=== PATIENT | male | born 1975 | race American Indian/Alaskan Native ===

== ENCOUNTER 2018-09-01 13:37 | Inpatient (IN) | payer MEDICAID ==
[2018-09-08] MEDS ORDERED: ZOFRAN ODT PO PRN (13:03)
[2018-09-08] MEDS ORDERED: REQUIP PO PRN (13:03)
[2018-09-08] MEDS ORDERED: ATIVAN IV PRN (13:03)
[2018-09-08] MEDS ORDERED: ZOFRAN IV PRN (13:03)
[2018-09-08] MEDS ORDERED: SENOKOT PO PRN (13:03)
[2018-09-08] MEDS ORDERED: IMODIUM PO PRN (13:03)
[2018-09-08] MEDS ORDERED: TYLENOL PO PRN (13:03)
[2018-09-08] MEDS ORDERED: ROBAXIN PO PRN (13:03)
[2018-09-08] MEDS ORDERED: DULCOLAX PR PRN (13:03)
[2018-09-08] MEDS ORDERED: IBUPROFEN PO PRN (13:03)
[2018-09-08] MEDS ORDERED: VISTARIL PO PRN (13:03)
[2018-09-08] MEDS ORDERED: ALUM-MAG HYDROX-SIMETH 200-200-20MG/5ML PO PRN (13:03)
[2018-09-08] MEDS ORDERED: VISTARIL IM PRN (13:03)
[2018-09-08] MEDS ORDERED: NACL 0.9% 1000 ML 1,000 ML IV SCH (14:00)
[2018-09-08] MEDS ORDERED: HABITROL TD PRN (15:00)
[2018-09-08] MEDS: CATAPRES PO SCH ×3 (15:00→22:35)
[2018-09-08 15:34] LABS: Hematocrit 46.9 % (35.5-45.6); Hemoglobin 15.1 gm/dl (11.8-15.2); Mean Corpuscular HGB Conc 32 % (32-34); Mean Corpuscular Volume 85 fl (84-94); Red Blood Count 5.51 M/mm3 (3.65-5.03); Red Cell Distribution Width 15.8 % (13.2-15.2)
[2018-09-08 15:38] LABS: Alanine Aminotransferase 13 units/L (7-56); Albumin 4.2 g/dL (3.9-5); BUN/Creatinine Ratio 8; Blood Urea Nitrogen 7 mg/dL (9-20); Calcium 9.3 mg/dL (8.4-10.2); Hemolysis Index 25
[2018-09-08 15:40] LABS: Platelet Count 197 K/mm3 (140-440)
[2018-09-08 15:45] LABS: INR 0.89 (0.87-1.13)
[2018-09-08] MEDS: ATIVAN PO SCH ×2 (16:04→20:26)
--- NOTE | 2018-09-08 17:38 | History and Physical Report ---
History of Present Illness Date of examination: 09/08/18 Date of admission: 09/08/18 13:41 Chief complaint: Cocaine dependence and wants help to deal with it. History of present illness: 42-year-old -[place] male with no significant past medical history excep t for cocaine abuse for the last 4 years comes in for help for cocaine dependence. Patient wants to get off cocaine use and dependence. Patient uses about half a gram of cocaine every day worth of $20. Patient does not have any chest pain. No seizures. Patient is slightly nervous and tremulous. Patient does not want to use any more cocaine and wants help or appropriate transfer. No fever or chills, no shortness of breath. No chest pain.. Past History Past Medical History: No medical history Past Surgical History: No surgical history Social history: single, lives with family, smoking, prescription drug abuse Family history: hypertension Medications and Allergies Allergies Allergy/AdvReac Type Severity Reaction Status Date / Time No Known Allergies Allergy Unverified 09/01/18 14:09 Active Meds: Active Medications Acetaminophen (Tylenol) 500 mg PO Q4H PRN PRN Reason: Temp > 100.4 Al Hydrox/Mg Hydrox/Simethicone (Alum-Mag Hydrox-Simeth [id number]/5ml) 30 ml PO Q6H PRN PRN Reason: Dyspepsia Bisacodyl (Dulcolax) 10 mg [place] QDAY PRN PRN Reason: Bowel Movement Clonidine HCl (Catapres) 0.1 mg PO Q4H COUNT INCLUDES THE [facility] Last Admin: 09/08/18 15:00 Dose: 0.1 mg Documented by: Folic Acid (Folvite) 1 mg PO QDAY COUNT INCLUDES THE [facility] Hydroxyzine HCl (Vistaril) 50 mg IM Q6H PRN PRN Reason: Breakthrough Anxiety Hydroxyzine Pamoate (Vistaril) 50 mg PO Q6H PRN PRN Reason: Anxiety Mild Sodium Chloride (Nacl 0.9% 1000 Ml) 1,000 mls @ 75 mls/hr IV DIRECT COUNT INCLUDES THE [facility] Ibuprofen (Motrin) 600 mg PO Q8H PRN PRN Reason: Pain, Mild (1-3) Loperamide HCl (Imodium) 2 mg PO Q8H PRN PRN Reason: Diarrhea Lorazepam (Ativan) 1 mg PO Q4H COUNT INCLUDES THE [facility] Stop: 09/09/18 12:01 Last Admin: 09/08/18 16:04 Dose: 1 mg Documented by: Lorazepam (Ativan) 2 mg IV PRN PRN PRN Reason: Seizures Lorazepam (Ativan) 1 mg PO Q6HR COUNT INCLUDES THE [facility] Stop: 09/10/18 12:01 Lorazepam (Ativan) 1 mg PO Q8H COUNT INCLUDES THE [facility] Stop: 09/11/18 12:01 Methocarbamol (Robaxin) 750 mg PO Q6H PRN PRN Reason: Muscle Ache Multivitamins (Theragran Tab) 1 each PO QDAY COUNT INCLUDES THE [facility] Nicotine (Habitrol) 21 mg TD QDAY PRN PRN Reason: Smoking Cessation Ondansetron HCl (Zofran) 4 mg IV Q6H PRN PRN Reason: Moderat/Severe Nausea/Vomiting Ondansetron HCl (Zofran Odt) 4 mg PO Q6H PRN PRN Reason: Mild / Nausea And Vomiting Ropinirole HCl (Requip) 0.5 mg PO Q12H PRN PRN Reason: Restless Legs Senna (Senokot) 17.2 mg PO QHS PRN PRN Reason: Constipation Thiamine HCl (Vitamin B-1) 100 mg PO QDAY COUNT INCLUDES THE [facility] Trazodone HCl (Desyrel) 50 mg PO QHS COUNT INCLUDES THE [facility] Review of Systems All systems: negative Exam - Constitutional Vitals: Temp Pulse Resp BP Pulse Ox 98.2 F 63 20 129/73 96 09/08/18 14:37 09/08/18 15:00 09/08/18 14:37 09/08/18 15:00 09/08/18 14:37 General appearance: Present: no acute distress, well-nourished - EENT Eyes: Present: PERRL ENT: hearing intact, clear oral mucosa - Neck Neck: Present: supple, normal ROM - Respiratory Respiratory effort: normal Respiratory: bilateral: CTA - Cardiovascular Heart rate: 78 Rhythm: regular (78) Heart Sounds: Present: S1 & S2. Absent: rub, click - Extremities Extremities: no ischemia, pulses intact, pulses symmetrical, No edema Peripheral Pulses: within normal limits - Abdominal General gastrointestinal: Present: soft, non-tender, non-distended, normal bowel sounds Male genitourinary: Present: normal - Integumentary Integumentary: Present: clear, warm, dry - Musculoskeletal Musculoskeletal: gait normal, strength equal bilaterally - Psychiatric Psychiatric: appropriate mood/affect, intact judgment & insight - Neurologic Neurologic: CNII-XII intact, moves all extremities - Allied Health Allied health notes reviewed: nursing, case management Results - Labs CBC & Chem 7: 09/08/18 14:42 09/08/18 14:42 Labs: Laboratory Last Values WBC 5.2 K/mm3 (4.5-11.0) 09/08/18 14:42 RBC 5.51 M/mm3 (3.65-5.03) H 09/08/18 14:42 Hgb 15.1 gm/dl (11.8-15.2) 09/08/18 14:42 Hct 46.9 % (35.5-45.6) H 09/08/18 14:42 MCV 85 fl (84-94) 09/08/18 14:42 MCH 27 pg (28-32) L 09/08/18 14:42 MCHC 32 % (32-34) 09/08/18 14:42 RDW 15.8 % (13.2-15.2) H 09/08/18 14:42 Plt Count 197 K/mm3 (140-440) 09/08/18 14:42 PT 12.6 Sec. (12.2-14.9) 09/08/18 14:42 INR 0.89 (0.87-1.13) 09/08/18 14:42 Sodium 140 mmol/L (137-145) 09/08/18 14:42 Potassium 4.2 mmol/L (3.6-5.0) 09/08/18 14:42 Chloride 104.9 mmol/L (98-107) 09/08/18 14:42 Carbon Dioxide 25 mmol/L (22-30) 09/08/18 14:42 Anion Gap 14 mmol/L 09/08/18 14:42 BUN 7 mg/dL (9-20) L 09/08/18 14:42 Creatinine 0.9 mg/dL (0.8-1.5) 09/08/18 14:42 Estimated GFR > 60 ml/min 09/08/18 14:42 BUN/Creatinine Ratio 8 % 09/08/18 14:42 Glucose 81 mg/dL (75-100) 09/08/18 14:42 Calcium 9.3 mg/dL (8.4-10.2) 09/08/18 14:42 Total Bilirubin 0.30 mg/dL (0.1-1.2) 09/08/18 14:42 AST 17 units/L (5-40) 09/08/18 14:42 ALT 13 units/L (7-56) 09/08/18 14:42 Alkaline Phosphatase 98 units/L (35-129) 09/08/18 14:42 Total Protein 6.5 g/dL (6.3-8.2) 09/08/18 14:42 Albumin 4.2 g/dL (3.9-5) 09/08/18 14:42 Albumin/Globulin Ratio 1.8 % 09/08/18 14:42 Amylase 74 units/L (27-131) 09/08/18 14:42 Lipase 22 units/L (13-60) 09/08/18 14:42 Plasma/Serum Alcohol < 0.01 % (0-0.07) 09/08/18 14:42 Assessment and Plan Advance Directives: Yes (full code) VTE prophylaxis?: Chemical Plan of care discussed with patient/family: Yes - Patient Problems (1) Cocaine dependence, continuous abuse Current Visit: Yes Status: Acute Plan to address problem: Cocaine medical stabilization protocol ordered with Lorazepam taper 1mg q4h on day 1 and 1 mg Lorazepam q6h on Day 2 and Lorazepam 1 mg q8 hr Also Clonidin Mehacarbamol and Hydroxyzine to be used PRN for anxiety and Muscle spasms etc (2) DVT prophylaxis Current Visit: Yes Status: Acute Plan to address problem: On Lovenox and GI prophylaxis
[2018-09-08 21:04] LABS: Bilirubin,Urine NEG (Negative); Blood,Urine NEG (Negative); Color,Urine Yellow (Yellow); Mucus,Urine FEW /HPF; Protein,Urine <15 mg/dL mg/dL (Negative)
[2018-09-08 21:07] LABS: Amphetamine Screen,Urine PRESUMPTIVE NEGATIVE; Benzodiazepines Screen,Urine PRESUMPTIVE NEGATIVE; Cannabinoid Screen,Urine PRESUMPTIVE NEGATIVE; Methadone Screen,Urine PRESUMPTIVE NEGATIVE; Opiate Screen,Urine PRESUMPTIVE NEGATIVE
[2018-09-08 21:17] LABS: Cocaine Screen,Urine PRESUMPTIVE POSITIVE
[2018-09-08] MEDS ORDERED: DESYREL PO SCH (22:00)
[2018-09-09] MEDS: ATIVAN PO SCH ×3 (00:25→08:53)
[2018-09-09] MEDS: CATAPRES PO SCH ×3 (03:25→10:53)
[2018-09-09 08:03] VITALS: BP 122/56
[2018-09-09] MEDS ORDERED: THERAGRAN Tab PO SCH (10:00)
[2018-09-09] MEDS ORDERED: FOLVITE PO SCH (10:00)
[2018-09-09] MEDS ORDERED: VITAMIN B-1 PO SCH (10:00)
--- NOTE | 2018-09-09 10:48 | Progress Note ---
Hospitalist Physical - Constitutional Vitals: Temp Pulse Resp BP Pulse Ox 98.3 F 57 L 20 122/56 95 09/09/18 07:53 09/09/18 07:53 09/09/18 07:53 09/09/18 07:53 09/09/18 07:53 General appearance: Present: no acute distress, well-nourished Results - Labs CBC & Chem 7: 09/08/18 14:42 09/08/18 14:42 Labs: Laboratory Last Values WBC 5.2 K/mm3 (4.5-11.0) 09/08/18 14:42 RBC 5.51 M/mm3 (3.65-5.03) H 09/08/18 14:42 Hgb 15.1 gm/dl (11.8-15.2) 09/08/18 14:42 Hct 46.9 % (35.5-45.6) H 09/08/18 14:42 MCV 85 fl (84-94) 09/08/18 14:42 MCH 27 pg (28-32) L 09/08/18 14:42 MCHC 32 % (32-34) 09/08/18 14:42 RDW 15.8 % (13.2-15.2) H 09/08/18 14:42 Plt Count 197 K/mm3 (140-440) 09/08/18 14:42 PT 12.6 Sec. (12.2-14.9) 09/08/18 14:42 INR 0.89 (0.87-1.13) 09/08/18 14:42 Sodium 140 mmol/L (137-145) 09/08/18 14:42 Potassium 4.2 mmol/L (3.6-5.0) 09/08/18 14:42 Chloride 104.9 mmol/L (98-107) 09/08/18 14:42 Carbon Dioxide 25 mmol/L (22-30) 09/08/18 14:42 Anion Gap 14 mmol/L 09/08/18 14:42 BUN 7 mg/dL (9-20) L 09/08/18 14:42 Creatinine 0.9 mg/dL (0.8-1.5) 09/08/18 14:42 Estimated GFR > 60 ml/min 09/08/18 14:42 BUN/Creatinine Ratio 8 % 09/08/18 14:42 Glucose 81 mg/dL (75-100) 09/08/18 14:42 Calcium 9.3 mg/dL (8.4-10.2) 09/08/18 14:42 Total Bilirubin 0.30 mg/dL (0.1-1.2) 09/08/18 14:42 AST 17 units/L (5-40) 09/08/18 14:42 ALT 13 units/L (7-56) 09/08/18 14:42 Alkaline Phosphatase 98 units/L (35-129) 09/08/18 14:42 Total Protein 6.5 g/dL (6.3-8.2) 09/08/18 14:42 Albumin 4.2 g/dL (3.9-5) 09/08/18 14:42 Albumin/Globulin Ratio 1.8 % 09/08/18 14:42 Amylase 74 units/L (27-131) 09/08/18 14:42 Lipase 22 units/L (13-60) 09/08/18 14:42 Urine Color Yellow (Yellow) 09/08/18 20:30 Urine Turbidity Clear (Clear) 09/08/18 20:30 Urine pH 6.0 (5.0-7.0) 09/08/18 20:[address] [place] 1.020 (1.003-1.030) 09/08/18 20:30 Urine Protein <15 mg/dl mg/dL (Negative) 09/08/18 20:30 Urine Glucose (UA) Neg mg/dL (Negative) 09/08/18 20:30 Urine Ketones Neg mg/dL (Negative) 09/08/18 20:30 Urine Blood Neg (Negative) 09/08/18 20:30 Urine Nitrite Neg (Negative) 09/08/18 20:30 Urine Bilirubin Neg (Negative) 09/08/18 20:30 Urine Urobilinogen 4.0 mg/dL (<2.0) 09/08/18 20:30 Ur Leukocyte Esterase Neg (Negative) 09/08/18 20:30 Urine WBC (Auto) 1.0 /HPF (0.0-6.0) 09/08/18 20:30 Urine RBC (Auto) 1.0 /HPF (0.0-6.0) 09/08/18 20:30 U Epithel Cells (Auto) < 1.0 /HPF (0-13.0) 09/08/18 20:30 Urine Mucus Few /HPF 09/08/18 20:30 Urine Opiates Screen Presumptive negative 09/08/18 20:30 Urine Methadone Screen Presumptive negative 09/08/18 20:30 Ur Barbiturates Screen Presumptive negative 09/08/18 20:30 Ur Phencyclidine Scrn Presumptive negative 09/08/18 20:30 Ur Amphetamines Screen Presumptive negative 09/08/18 20:30 U Benzodiazepines Scrn Presumptive negative 09/08/18 20:30 Urine Cocaine Screen Presumptive positive 09/08/18 20:30 U Marijuana (THC) Screen Presumptive negative 09/08/18 20:30 Drugs of Abuse Note Disclamer 09/08/18 20:30 Plasma/Serum Alcohol < 0.01 % (0-0.07) 09/08/18 14:42
[2018-09-09] MEDS ORDERED: AFLURIA QUAD 2018-2019 SYRINGE IM ONE (12:00)
[2018-09-09] MEDS ORDERED: ATIVAN PO SCH (18:00)
--- NOTE | 2018-09-09 18:20 | Discharge Summary ---
Providers - Providers Date of Admission: 09/08/18 13:41 Date of discharge: 09/09/18 Attending physician: CAROL OHARA Primary care physician: [facility] Hospitalization Reason for admission: Cocain Detox Condition: Fair Hospital course: 42-year-old -[place] male with no significant past medical history except for cocaine abuse for the last 4 years was admitted for detoxification of cocaine dependence. Patient wants to get off cocaine use and dependence. Patient uses about half a gram of cocaine every day worth of $20. Patient does not have any chest pain. No seizures. Patient is slightly nervous and tremulous. Patient does not want to use any more cocaine and wants help or appropriate transfer.Patient was placed on detox program. Today morning when I evaluated the patient patient feels better, No new complaints, vital signs stable, physical examination unremarkable However later this morning, patient reported to the nurse that he does not want to stay and wanted to leave AGAINST MEDICAL ADVICE Caregivers explained the risks and consequences of leaving in the middle of treatment to the patient. Patient insisted on leaving ,signed documents and left the hospital AMA Discharge diagnosis; --Cocaine dependence; And drug rehabilitation program Disposition: [id number] LEFT AGAINST MED ADVICE Time spent for discharge: 31 min Core Measure Documentation - Palliative Care Palliative Care/ Comfort Measures: Not Applicable - Core Measures Any of the following diagnoses?: none Exam - Constitutional Vitals: Temp Pulse Resp BP Pulse Ox 98.3 F 57 L 18 122/56 95 09/09/18 07:53 09/09/18 10:53 09/09/18 10:00 09/09/18 10:53 09/09/18 10:00 General appearance: Present: no acute distress, well-nourished - EENT Eyes: Present: PERRL, EOM intact - Neck Neck: Present: supple, normal ROM - Respiratory Respiratory effort: normal Respiratory: bilateral: diminished, negative: rales, rhonchi, wheezing - Cardiovascular Rhythm: regular Heart Sounds: Present: S1 & S2 - Extremities Extremities: no ischemia, No edema - Abdominal General gastrointestinal: Present: soft, non-tender, non-distended, normal bowel sounds - Integumentary Integumentary: Present: clear, warm - Musculoskeletal Musculoskeletal: strength equal bilaterally - Psychiatric Psychiatric: appropriate mood/affect, cooperative - Neurologic Neurologic: CNII-XII intact, moves all extremities Plan Additional Instructions: Patient left AMA Follow up with: PRIMARY CARE, [Primary Care Provider] - 7 Days
[2018-09-10] MEDS ORDERED: ATIVAN PO SCH (20:00)
== END 2018-09-09 12:11 | disposition left against medical advice (07) | DRG 894 ==
LOC: 2B-ACE 13:37 → UNDOADMIN 13:37 → MSU 09-08 13:41
PROVIDERS: ADMIT Internal Medicine; ATTEND Internal Medicine
PROC: HZ2ZZZZ Detoxification Services for Substance Abuse Treatment (ICD-10-PCS; principal; 2018-09-09)
DX: F14.20 Cocaine dependence, uncomplicated (principal); F17.200 Nicotine dependence, unspecified, uncomplicated; Z82.49 Family history of ischemic heart disease and other diseases of the circulatory system
CPT/HCPCS: 36415; 80053; 80307; 80320; 81001; 82150; 83690; 85027; 85610; 90686; 93005; 93010; 99406; G0378; G0480; J7030